=== PATIENT | male | born 1995 | race Caucasian/White ===

== ENCOUNTER 2023-11-23 02:45 | Inpatient (IN) | payer MEDICAID ==
[~2023-11-23] VITALS: Ht 185.4 cm; Wt 108.4 kg
[2023-11-23 05:00] VITALS: BP 122/71; TEMP 97.7; O2SAT 100
[2023-11-23] MEDS ORDERED: Z GUARD REMEDY 4 OZ OINT TP PRN (06:30)
[2023-11-23] MEDS ORDERED: ONDANSETRON HCL/PF 4 MG/2 ML VIAL IVP PRN (06:30)
[2023-11-23] MEDS ORDERED: MAG HYDROX/AL HYDROX/SIMETH 30 ML UDC PO PRN (06:30)
[2023-11-23] MEDS ORDERED: ZOLPIDEM TARTRATE 5 MG TABLET PO PRN (06:30)
[2023-11-23] MEDS ORDERED: MAGNESIUM HYDROXIDE 30 ML UDC PO PRN (06:30)
[2023-11-23] MEDS: IV D5/0.45 NACL 1,000 ML IV PRN (07:17)
[2023-11-23] MEDS ORDERED: CEPH500C2 PO (07:21)
[2023-11-23] MEDS ORDERED: METH750T3 PO (07:21)
[2023-11-23] MEDS ORDERED: IBUP-1955 PO (07:21)
[2023-11-23] MEDS ORDERED: ONDA4TAB11 SL (07:21)
[2023-11-23] MEDS ORDERED: PREG200C PO (07:21)
[2023-11-23 07:22] LABS: BASOPHILS % (AUTO) 0.6 % (0.0-2.0); EOSINOPHILS # (AUTO) 0.2 K/uL (0.0-0.7); EOSINOPHILS % (AUTO) 6.5 % (0.0-6.0); HEMATOCRIT 40 % (39-51); HEMOGLOBIN 13.5 g/dL (13.5-17.5); LYMPHOCYTES # (AUTO) 0.7 K/uL (0.8-4.8); LYMPHOCYTES % (AUTO) 19.9 % (20.0-44.0); MEAN CORPUSCULAR HEMOGLOBIN 28 PG (26.0-33.0); MEAN CORPUSCULAR HGB CONC 33 g/dl (31.0-36.0); MEAN CORPUSCULAR VOLUME 84 fL (80-96); MONOCYTES # (AUTO) 0.3 K/uL (0.1-1.30); MONOCYTES % (AUTO) 10.3 % (2.0-12.0); NEUTROPHILS # (AUTO) 2.1 K/uL (1.8-8.9); NEUTROPHILS % (AUTO) 62.7 % (43.0-81.0); PLATELET COUNT (AUTO) 135 K/uL (150-450); RED BLOOD CELL COUNT(AUTO) 4.78 MIL/uL (4.5-6.0); WHITE BLOOD COUNT (AUTO) 3.3 K/uL (4.3-11.0)
[2023-11-23] MEDS ORDERED: OXYC30TA2 PO (07:44)
[2023-11-23 07:50] LABS: ALBUMIN 2.7 g/dL (3.4-5.0); BILIRUBIN,TOTAL 0.2 mg/dL (0.2-1.0); CALCIUM, SERUM 8.6 mg/dL (8.5-10.1); CREATININE 0.8 mg/dL (0.6-1.3); POTASSIUM 3.9 mmol/L (3.5-5.1); TOTAL PROTEIN, SERUM 6.2 g/dL (6.4-8.2)
[2023-11-23] MEDS: CEFTRIAXONE 1 G in IV D5W 50 ML IV SCH (08:30)
[2023-11-23] MEDS: PANTOPRAZOLE 40 MG VIAL IV SCH (08:43)
[2023-11-23] MEDS: HYDROMORPHONE 1 MG/1 ML DISP.SYRIN IV PRN (08:44)
[2023-11-23] MEDS ORDERED: IBUPROFEN 600 MG TABLET PO PRN (12:30)
[2023-11-23] MEDS ORDERED: METHOCARBAMOL (750MG) 750 MG TABLET PO PRN (12:30)
[2023-11-23] MEDS ORDERED: ONDANSETRON 4 MG TAB.RAPDIS SL PRN (12:30)
[2023-11-23] MEDS: METHOCARBAMOL (500MG) 500 MG TABLET PO PRN (12:38)
[2023-11-23] MEDS: oxyCODONE IR immediate release 5 MG PO SCH (12:47)
[2023-11-23] MEDS: PREGABALIN 100 MG CAPSULE PO SCH (12:47)
[2023-11-23 20:00] VITALS: BP 118/70; TEMP 100.4; O2SAT 100
[2023-11-23] MEDS: ACETAMINOPHEN 325 MG TABLET PO PRN (20:24)
[2023-11-24] VITALS: BP 113/67; TEMP 98.8; O2SAT 99
[2023-11-24] MEDS: diphenhydrAMINE HCL 25 MG CAPSULE PO PRN (01:05)
[2023-11-24] MEDS: HYDROCODONE/APAP 5/325MG TABLET PO PRN (01:22)
[2023-11-24] MEDS: LORAZEPAM INJ 2 MG/ML VIAL IV ONE (02:12)
[2023-11-24 04:00] VITALS: BP 117/72; TEMP 97.7; O2SAT 99
[2023-11-24 06:40] LABS: BASOPHILS % (AUTO) 0.5 % (0.0-2.0); EOSINOPHILS # (AUTO) 0.2 K/uL (0.0-0.7); EOSINOPHILS % (AUTO) 5.8 % (0.0-6.0); HEMATOCRIT 39 % (39-51); HEMOGLOBIN 13.2 g/dL (13.5-17.5); LYMPHOCYTES # (AUTO) 1.1 K/uL (0.8-4.8); LYMPHOCYTES % (AUTO) 35.1 % (20.0-44.0); MEAN CORPUSCULAR HEMOGLOBIN 29 PG (26.0-33.0); MEAN CORPUSCULAR HGB CONC 34 g/dl (31.0-36.0); MEAN CORPUSCULAR VOLUME 84 fL (80-96); MONOCYTES # (AUTO) 0.6 K/uL (0.1-1.30); MONOCYTES % (AUTO) 19.6 % (2.0-12.0); NEUTROPHILS # (AUTO) 1.2 K/uL (1.8-8.9); PLATELET COUNT (AUTO) 143 K/uL (150-450); RED BLOOD CELL COUNT(AUTO) 4.61 MIL/uL (4.5-6.0); RED CELL DISTRIBUTION WIDTH 13.9 % (11.5-15.0); WHITE BLOOD COUNT (AUTO) 3.2 K/uL (4.3-11.0)
[2023-11-24 06:54] LABS: CALCIUM, SERUM 8.4 mg/dL (8.5-10.1); CREATININE 0.8 mg/dL (0.6-1.3); MAGNESIUM 2.1 mg/dL (1.8-2.4); POTASSIUM 3.7 mmol/L (3.5-5.1)
[2023-11-24 07:55] LABS: PHOSPHORUS 4.6 mg/dL (2.5-4.9)
[2023-11-24 08:00] VITALS: BP 120/66; TEMP 97.9; O2SAT 99
[2023-11-24 08:17] LABS: BAND % (MANUAL) 8 % (0.0-5.0); EOSINOPHILS % (MANUAL) 5 % (0-4); LYMPHOCYTES % (MANUAL) 35 % (16-48); MONOCYTES % (MANUAL) 16 % (0-11.0); NEUTROPHILS % (MANUAL) 36 (42-76)
[2023-11-24 08:18] LABS: PLATELET ESTIMATE SLIGHTLY DECREASED
[2023-11-24 08:19] LABS: HYPOCHROMASIA FEW
[2023-11-24] MEDS: HYDROMORPHONE 1 MG/1 ML DISP.SYRIN IV PRN (11:32)
[2023-11-24 12:00] VITALS: BP 117/80; TEMP 97.9; O2SAT 98
[2023-11-24 16:00] VITALS: BP 99/61; TEMP 99.1; O2SAT 97
[2023-11-24 20:00] VITALS: BP 105/63; TEMP 100.2; O2SAT 98
[2023-11-25] VITALS: BP 118/72; TEMP 99; O2SAT 96
[2023-11-25 04:00] VITALS: BP 113/63; TEMP 98.1; O2SAT 97
[2023-11-25 06:51] LABS: BASOPHILS % (AUTO) 0.1 % (0.0-2.0); EOSINOPHILS # (AUTO) 0.1 K/uL (0.0-0.7); EOSINOPHILS % (AUTO) 1.1 % (0.0-6.0); HEMATOCRIT 39 % (39-51); HEMOGLOBIN 13.2 g/dL (13.5-17.5); LYMPHOCYTES # (AUTO) 1.5 K/uL (0.8-4.8); LYMPHOCYTES % (AUTO) 28.9 % (20.0-44.0); MEAN CORPUSCULAR HEMOGLOBIN 28 PG (26.0-33.0); MEAN CORPUSCULAR HGB CONC 34 g/dl (31.0-36.0); MEAN CORPUSCULAR VOLUME 83 fL (80-96); MONOCYTES # (AUTO) 0.5 K/uL (0.1-1.30); MONOCYTES % (AUTO) 10.5 % (2.0-12.0); NEUTROPHILS % (AUTO) 59.4 % (43.0-81.0); PLATELET COUNT (AUTO) 168 K/uL (150-450); RED CELL DISTRIBUTION WIDTH 13.6 % (11.5-15.0)
[2023-11-25 06:55] LABS: CALCIUM, SERUM 8.5 mg/dL (8.5-10.1); CREATININE 0.9 mg/dL (0.6-1.3); POTASSIUM 4.1 mmol/L (3.5-5.1)
[2023-11-25 08:00] VITALS: BP 115/70; TEMP 99.5; O2SAT 98
[2023-11-25] MEDS: PANTOPRAZOLE 40 MG TABLET.DR PO SCH (08:08)
[2023-11-25 12:00] VITALS: BP 117/71; TEMP 99.1; O2SAT 94
[2023-11-25 16:00] VITALS: BP 120/77; TEMP 98.5; O2SAT 98
[2023-11-25] MEDS: ENSURE ENLIVE CHOC 237 ML CAN PO SCH (17:25)
[2023-11-25 20:00] VITALS: BP 126/72; TEMP 98.4; O2SAT 96
[2023-11-26] VITALS: BP 123/63; TEMP 99.3; O2SAT 96
[2023-11-26 04:00] VITALS: BP 123/63; TEMP 98.6; O2SAT 97
[2023-11-26 07:52] LABS: BASOPHILS % (AUTO) 0.1 % (0.0-2.0); EOSINOPHILS % (AUTO) 0.3 % (0.0-6.0); HEMATOCRIT 42 % (39-51); HEMOGLOBIN 14.1 g/dL (13.5-17.5); LYMPHOCYTES # (AUTO) 1.3 K/uL (0.8-4.8); LYMPHOCYTES % (AUTO) 13.9 % (20.0-44.0); MEAN CORPUSCULAR HEMOGLOBIN 29 PG (26.0-33.0); MEAN CORPUSCULAR HGB CONC 33 g/dl (31.0-36.0); MEAN CORPUSCULAR VOLUME 86 fL (80-96); MONOCYTES # (AUTO) 0.6 K/uL (0.1-1.30); MONOCYTES % (AUTO) 6.9 % (2.0-12.0); NEUTROPHILS # (AUTO) 7.3 K/uL (1.8-8.9); NEUTROPHILS % (AUTO) 78.8 % (43.0-81.0); PLATELET COUNT (AUTO) 198 K/uL (150-450); RED BLOOD CELL COUNT(AUTO) 4.95 MIL/uL (4.5-6.0); RED CELL DISTRIBUTION WIDTH 13.8 % (11.5-15.0); WHITE BLOOD COUNT (AUTO) 9.3 K/uL (4.3-11.0)
[2023-11-26 08:19] LABS: CALCIUM, SERUM 8.6 mg/dL (8.5-10.1)
== END 2023-11-26 13:16 | disposition home or self-care (01) | DRG 720 ==
LOC: TELE-TD 04:50 → TELE1 06:39
PROVIDERS: ADMIT Internal Medicine; ATTEND Internal Medicine
DX: A41.9 Sepsis, unspecified organism (principal); G82.20 Paraplegia, unspecified; B34.9 Viral infection, unspecified; D72.819 Decreased white blood cell count, unspecified; I10 Essential (primary) hypertension; S12.600S Unspecified displaced fracture of seventh cervical vertebra, sequela; N10 Acute pyelonephritis; N30.00 Acute cystitis without hematuria; B96.20 Unspecified Escherichia coli [E. coli] as the cause of diseases classified elsewhere; V89.2XXS Person injured in unspecified motor-vehicle accident, traffic, sequela; Z88.0 Allergy status to penicillin
CPT/HCPCS: 36415; 80048-TC; 80053-TC; 83690-TC; 83735-TC; 84100-TC; 85025-TC; A4223; C9113; G0378; J0696; J1170; J2060; J3490; J7060; Q0163

== ENCOUNTER 2024-06-03 20:35 | Inpatient (IN) | payer MEDICARE, OTHER ==
[~2024-06-03] VITALS: Ht 188 cm; Wt 102.1 kg
[~2024-06-03 20:35] MED LIST: CEPH500C2 PO; IBUP-1955 PO; METH750T3 PO; ONDA4TAB11 SL; OXYC30TA2 PO; PREG200C PO
[2024-06-03] MEDS ORDERED: CEFEPIME 1 GM VIAL ONE (21:00)
[2024-06-03] MEDS ORDERED: VANCOMYCIN 1 GM /D5W 250 ML PB IV ONE (21:00)
[2024-06-03] MEDS ORDERED: ACETAMINOPHEN 650 MG/SUPP.RECT RC ONE (21:01)
[2024-06-03 21:12] LABS: BASOPHILS % (AUTO) 0.3 % (0.0-2.0); EOSINOPHILS # (AUTO) 0.3 K/uL (0.0-0.7); EOSINOPHILS % (AUTO) 3.1 % (0.0-6.0); HEMATOCRIT 44 % (39-51); HEMOGLOBIN 14.3 g/dL (13.5-17.5); LYMPHOCYTES % (AUTO) 9.9 % (20.0-44.0); MEAN CORPUSCULAR HEMOGLOBIN 28 PG (26.0-33.0); MEAN CORPUSCULAR HGB CONC 33 g/dl (31.0-36.0); MEAN CORPUSCULAR VOLUME 85 fL (80-96); MONOCYTES # (AUTO) 1.2 K/uL (0.1-1.30); MONOCYTES % (AUTO) 12.1 % (2.0-12.0); NEUTROPHILS # (AUTO) 7.4 K/uL (1.8-8.9); NEUTROPHILS % (AUTO) 74.6 % (43.0-81.0); PLATELET COUNT (AUTO) 225 K/uL (150-450); RED BLOOD CELL COUNT(AUTO) 5.13 MIL/uL (4.5-6.0); WHITE BLOOD COUNT (AUTO) 9.9 K/uL (4.3-11.0)
[2024-06-03] MEDS: CEFEPIME 1 GM in IV D5W 50 ML IV ONE (21:14)
[2024-06-03] MEDS: VANCOMYCIN 1 GM in IV D5W 250 ML IV ONE (21:14)
[2024-06-03] MEDS: ACETAMINOPHEN 650 MG/SUPP.RECT RC ONE (21:17)
[2024-06-03 21:25] LABS: CARBON DIOXIDE 23 mmol/L (21-32); CHLORIDE 102 mmol/L (98-107); GLUCOSE 101 mg/dL (74-106); POTASSIUM 4.2 mmol/L (3.5-5.1); SODIUM SERUM 135 mmol/L (136-145); UREA NITROGEN, BLOOD 10 mg/dL (7-18)
[2024-06-03 21:26] LABS: APPEARANCE,URINE SLIGHTLY CLOUDY (CLEAR); BILIRUBIN,URINE NEGATIVE (NEGATIVE); BLOOD, URINE NEGATIVE Ery/uL (NEGATIVE); COLOR,URINE YELLOW (YELLOW); KETONES,URINE TRACE mg/dL (NEGATIVE); LEUKOCYTE ESTERASE ,URINE 2+ (NEGATIVE); NITRITE, URINE NEGATIVE (NEGATIVE); PH,URINE 6.5 (5.0-8.0); PROTEIN,URINE 1+ mg/dl (NEGATIVE); UGLUCOSE NEGATIVE (NEGATIVE); UROBILINOGEN,URINE 0.2 EU/dL (0.2)
[2024-06-03 21:27] LABS: INR 1.02 (0.91-1.10); PARTIAL THROMBOPLASTIN TIME 27.8 SEC (24.3-34.3); PROTHROMBIN TIME 10.8 SECS (9.2-11.1)
[2024-06-03 21:31] LABS: ALANINE AMINOTRANSFERASE 31 U/L (12-78); ALKALINE PHOSPHATASE 115 U/L (46-116); ASPARTATE AMINOTRANSFERASE 9 U/L (15-37); BILIRUBIN,DIRECT 0.1 mg/dL (0.0-0.2); BILIRUBIN,TOTAL 0.3 mg/dL (0.2-1.0); TOTAL PROTEIN, SERUM 6.9 g/dL (6.4-8.2)
[2024-06-03 21:33] LABS: LACTIC ACID 1.8 mmol/L (0.4-2.0)
[2024-06-03 21:39] LABS: ADD URINE CULTURE YES; BACTERIA,URINE 1+ /HPF (None Seen); MUCUS,URINE Few /LPF (None Seen); RBC,URINE 0-2 /HPF (0-2); WBC,URINE 21-50 /HPF (0-3)
[2024-06-03] MEDS ORDERED: HYDROMORPHONE 1 MG/1 ML DISP.SYRIN ONE (21:55)
[2024-06-03] MEDS: HYDROMORPHONE 1 MG/1 ML DISP.SYRIN IV STA (22:01)
[2024-06-03] MEDS ORDERED: ONDANSETRON HCL/PF 4 MG/2 ML VIAL IVP PRN (22:30)
[2024-06-03] MEDS ORDERED: MAGNESIUM HYDROXIDE 30 ML UDC PO PRN (22:30)
[2024-06-03] MEDS ORDERED: HYDROMORPHONE 1 MG/1 ML DISP.SYRIN IV PRN ×2 (22:30→23:00)
[2024-06-03] MEDS ORDERED: HYDROCODONE/APAP 5/325MG TABLET PO PRN (22:30)
[2024-06-03] MEDS ORDERED: IBUPROFEN 600 MG TABLET PO PRN (23:00)
[2024-06-03] MEDS ORDERED: METHOCARBAMOL (750MG) 750 MG TABLET PO PRN (23:00)
[2024-06-03 23:34] VITALS: BP 119/74; TEMP 98.2; O2SAT 98
[2024-06-03] MEDS: IV NS 0.9% 1,000 ML IV SCH (23:52)
[2024-06-03] MEDS: HYDROMORPHONE 1 MG/1 ML DISP.SYRIN IV ONE (23:53)
[2024-06-04] MEDS: HYDROMORPHONE 1 MG/1 ML DISP.SYRIN IV PRN (03:55)
[2024-06-04 04:00] VITALS: BP 123/80; TEMP 98.2; O2SAT 97
[2024-06-04] MEDS ORDERED: CEFEPIME 1 GM VIAL ONE (05:19)
[2024-06-04] MEDS: CEFEPIME 2 GM in IV D5W 100 ML IV SCH (05:28)
[2024-06-04] MEDS: VANCOMYCIN HCL 1.25 GM in IV D5W 250 ML IV SCH (06:42)
[2024-06-04 07:00] VITALS: BP 156/98; TEMP 98.3; O2SAT 99
[2024-06-04 07:17] LABS: BASOPHILS % (AUTO) 0.6 % (0.0-2.0); EOSINOPHILS # (AUTO) 0.2 K/uL (0.0-0.7); EOSINOPHILS % (AUTO) 3.8 % (0.0-6.0); HEMATOCRIT 41 % (39-51); HEMOGLOBIN 13.7 g/dL (13.5-17.5); LYMPHOCYTES % (AUTO) 19.1 % (20.0-44.0); MEAN CORPUSCULAR HEMOGLOBIN 28 PG (26.0-33.0); MEAN CORPUSCULAR HGB CONC 33 g/dl (31.0-36.0); MEAN CORPUSCULAR VOLUME 85 fL (80-96); MONOCYTES % (AUTO) 20.4 % (2.0-12.0); NEUTROPHILS # (AUTO) 2.9 K/uL (1.8-8.9); NEUTROPHILS % (AUTO) 56.1 % (43.0-81.0); PLATELET COUNT (AUTO) 195 K/uL (150-450); RED BLOOD CELL COUNT(AUTO) 4.87 MIL/uL (4.5-6.0); RED CELL DISTRIBUTION WIDTH 14.6 % (11.5-15.0); WHITE BLOOD COUNT (AUTO) 5.1 K/uL (4.3-11.0)
[2024-06-04 07:50] LABS: CALCIUM, SERUM 8.4 mg/dL (8.5-10.1); CREATININE 0.9 mg/dL (0.6-1.3); MAGNESIUM 2.2 mg/dL (1.8-2.4); PHOSPHORUS 3.7 mg/dL (2.5-4.9); POTASSIUM 3.9 mmol/L (3.5-5.1)
[2024-06-04] MEDS ORDERED: TIZA-180 PO (08:44)
[2024-06-04] MEDS ORDERED: BUPR1PAT3 TP (08:44)
[2024-06-04] MEDS ORDERED: oxyCODONE IR immediate release 5 MG TABLET PO SCH (09:00)
[2024-06-04] MEDS: PREGABALIN 100 MG CAPSULE PO SCH (09:11)
[2024-06-04] MEDS: oxyCODONE IR immediate release 5 MG TABLET PO SCH ×2 (09:12→21:21)
[2024-06-04] MEDS: PANTOPRAZOLE 40 MG VIAL IV SCH (09:13)
[2024-06-04 09:23] LABS: BASOPHILS % (MANUAL) 0 % (0.0-2.0); EOSINOPHILS % (MANUAL) 4 % (0-4); LYMPHOCYTES % (MANUAL) 17 % (16-48); MONOCYTES % (MANUAL) 16 % (0-11.0); NEUTROPHILS % (MANUAL) 63 (42-76); PLATELET ESTIMATE ADEQUATE
[2024-06-04] MEDS ORDERED: TIZANIDINE HCL 4 MG TABLET PO PRN ×2 (14:30)
[2024-06-04] MEDS ORDERED: BUPRENORPHINE TP PRN (15:30)
[2024-06-04] MEDS ORDERED: TIZANIDINE PO PRN (15:30)
[2024-06-04 16:00] VITALS: BP 133/84; TEMP 99; O2SAT 94
[2024-06-04] MEDS: TIZANIDINE 2 MG PO PRN (17:04)
[2024-06-04] MEDS: KETOROLAC TROMETHAMINE 15 MG/ML VIAL IV PRN (17:27)
[2024-06-04] MEDS: ACETAMINOPHEN 650 MG/SUPP.RECT RC PRN (17:35)
[2024-06-04 20:00] VITALS: BP 94/42; TEMP 99; O2SAT 98
[2024-06-04 20:15] VITALS: BP 94/42; TEMP 99; O2SAT 98
[2024-06-04] MEDS: FAMOTIDINE/PF INJ 20 MG/2 ML VIAL IV ONE (20:19)
[2024-06-04] MEDS: diphenhydrAMINE HCL 50 MG/ML VIAL IV ONE (20:19)
[2024-06-04] MEDS ORDERED: IBUPROFEN 600 MG TABLET PO PRN (21:00)
[2024-06-05] VITALS: BP 122/62; TEMP 99.3; O2SAT 93
[2024-06-05 00:10] VITALS: BP 122/62; TEMP 99.3; O2SAT 92
[2024-06-05] MEDS: VANCOMYCIN HCL 1.25 GM in IV D5W 250 ML IV SCH (01:29)
[2024-06-05] MEDS ORDERED: methylPREDNISolone SOD SUCC 125 MG/2ML VIAL IV ONE (04:00)
[2024-06-05 07:18] LABS: BASOPHILS % (AUTO) 0.3 % (0.0-2.0); EOSINOPHILS # (AUTO) 0.1 K/uL (0.0-0.7); EOSINOPHILS % (AUTO) 2.2 % (0.0-6.0); HEMATOCRIT 42 % (39-51); HEMOGLOBIN 13.8 g/dL (13.5-17.5); LYMPHOCYTES # (AUTO) 1.1 K/uL (0.8-4.8); LYMPHOCYTES % (AUTO) 23.5 % (20.0-44.0); MEAN CORPUSCULAR HEMOGLOBIN 28 PG (26.0-33.0); MEAN CORPUSCULAR HGB CONC 33 g/dl (31.0-36.0); MEAN CORPUSCULAR VOLUME 85 fL (80-96); MONOCYTES # (AUTO) 0.6 K/uL (0.1-1.30); PLATELET COUNT (AUTO) 192 K/uL (150-450); RED BLOOD CELL COUNT(AUTO) 4.88 MIL/uL (4.5-6.0); WHITE BLOOD COUNT (AUTO) 4.9 K/uL (4.3-11.0)
[2024-06-05 07:35] LABS: CALCIUM, SERUM 8.4 mg/dL (8.5-10.1); CREATININE 1.1 mg/dL (0.6-1.3); POTASSIUM 4.3 mmol/L (3.5-5.1)
[2024-06-05 08:00] VITALS: BP 119/59; TEMP 102.4; O2SAT 96
[2024-06-05 08:27] LABS: MAGNESIUM 1.9 mg/dL (1.8-2.4); PHOSPHORUS 4.6 mg/dL (2.5-4.9)
[2024-06-05] MEDS: TOLTERODINE 2 MG CAP.SR PO SCH (08:43)
[2024-06-05] MEDS: ACETAMINOPHEN 325 MG TABLET PO PRN (08:43)
[2024-06-05] MEDS: diphenhydrAMINE HCL ELIX 25 MG/10 ML UDC PO ONE (08:49)
[2024-06-05 12:00] VITALS: BP 124/75; TEMP 99.5; O2SAT 97
[2024-06-05] MEDS ORDERED: HYDROMORPHONE 1 MG/1 ML DISP.SYRIN IV PRN (12:30)
[2024-06-05] MEDS: HYDROMORPHONE 1 MG/1 ML DISP.SYRIN IV PRN (12:39)
[2024-06-05] MEDS ORDERED: REMDESIVIR (CHARGED) 200 MG, *LOADING DOSE 1 EA in IV NS 0.9% 210 ML IV ONE (13:00)
[2024-06-05] MEDS: SENNOSIDES/DOCUSATE SODIUM 1 TAB TABLET PO SCH (15:33)
[2024-06-05 15:59] LABS: BASOPHILS % (AUTO) 0.5 % (0.0-2.0); EOSINOPHILS # (AUTO) 0.1 K/uL (0.0-0.7); EOSINOPHILS % (AUTO) 2.1 % (0.0-6.0); HEMATOCRIT 41 % (39-51); HEMOGLOBIN 13.6 g/dL (13.5-17.5); LYMPHOCYTES # (AUTO) 1.5 K/uL (0.8-4.8); LYMPHOCYTES % (AUTO) 30.4 % (20.0-44.0); MEAN CORPUSCULAR HEMOGLOBIN 28 PG (26.0-33.0); MEAN CORPUSCULAR HGB CONC 33 g/dl (31.0-36.0); MEAN CORPUSCULAR VOLUME 85 fL (80-96); MONOCYTES # (AUTO) 0.6 K/uL (0.1-1.30); MONOCYTES % (AUTO) 12.6 % (2.0-12.0); NEUTROPHILS # (AUTO) 2.7 K/uL (1.8-8.9); NEUTROPHILS % (AUTO) 54.4 % (43.0-81.0); PLATELET COUNT (AUTO) 123 K/uL (150-450); RED BLOOD CELL COUNT(AUTO) 4.82 MIL/uL (4.5-6.0)
[2024-06-05 16:00] VITALS: BP_SYST 117; BP_SYST 124; BP_DIAS 62; BP_DIAS 75; TEMP 99.5; O2SAT 97; O2SAT 98
[2024-06-05 16:11] LABS: D-DIMER 1.13 mg/L(FEU (0.17-0.50); INR 0.98 (0.91-1.10); PARTIAL THROMBOPLASTIN TIME 30.1 SEC (24.3-34.3); PROTHROMBIN TIME 10.4 SECS (9.2-11.1)
[2024-06-05] MEDS: SENNA 8.6 MG PO ONE (16:11)
[2024-06-05 16:17] LABS: ALBUMIN 2.5 g/dL (3.4-5.0); BILIRUBIN,TOTAL 0.3 mg/dL (0.2-1.0); TOTAL PROTEIN, SERUM 6.3 g/dL (6.4-8.2)
[2024-06-05] MEDS: IV NS 0.9% 1,000 ML IV PRN (18:11)
[2024-06-05 20:00] VITALS: BP 120/55; TEMP 99.7; O2SAT 98
[2024-06-05] MEDS: PREGABALIN 100 MG CAPSULE PO SCH (20:10)
[2024-06-05] MEDS: SENNA 8.6 MG PO SCH (22:20)
[2024-06-06] VITALS: BP 112/62; TEMP 98.2; O2SAT 98
[2024-06-06] MEDS: MAG HYDROX/AL HYDROX/SIMETH 30 ML UDC PO PRN (00:20)
[2024-06-06 04:00] VITALS: BP 103/62; TEMP 98.2; O2SAT 96
[2024-06-06 07:36] LABS: BASOPHILS % (AUTO) 0.3 % (0.0-2.0); EOSINOPHILS # (AUTO) 0.1 K/uL (0.0-0.7); EOSINOPHILS % (AUTO) 2.5 % (0.0-6.0); HEMATOCRIT 38 % (39-51); HEMOGLOBIN 12.5 g/dL (13.5-17.5); LYMPHOCYTES # (AUTO) 1.4 K/uL (0.8-4.8); LYMPHOCYTES % (AUTO) 23.5 % (20.0-44.0); MEAN CORPUSCULAR HEMOGLOBIN 28 PG (26.0-33.0); MEAN CORPUSCULAR HGB CONC 33 g/dl (31.0-36.0); MEAN CORPUSCULAR VOLUME 86 fL (80-96); MONOCYTES # (AUTO) 0.7 K/uL (0.1-1.30); NEUTROPHILS # (AUTO) 3.8 K/uL (1.8-8.9); NEUTROPHILS % (AUTO) 62.7 % (43.0-81.0); PLATELET COUNT (AUTO) 161 K/uL (150-450); RED BLOOD CELL COUNT(AUTO) 4.42 MIL/uL (4.5-6.0); RED CELL DISTRIBUTION WIDTH 14.8 % (11.5-15.0); WHITE BLOOD COUNT (AUTO) 6.1 K/uL (4.3-11.0)
[2024-06-06 08:00] VITALS: BP 126/73; TEMP 97.9; O2SAT 97
[2024-06-06] MEDS: PANTOPRAZOLE 40 MG TABLET.DR PO SCH (08:32)
[2024-06-06 12:00] VITALS: BP 134/66; TEMP 98.6; O2SAT 97
[2024-06-06 12:56] LABS: CALCIUM, SERUM 8.5 mg/dL (8.5-10.1); CREATININE 0.7 mg/dL (0.6-1.3); POTASSIUM 4.6 mmol/L (3.5-5.1)
[2024-06-06] MEDS ORDERED: REMDESIVIR (CHARGED) 100 MG in IV NS 0.9% 100 ML IV SCH (13:00)
[2024-06-06 13:12] LABS: MAGNESIUM 1.9 mg/dL (1.8-2.4)
[2024-06-06 16:00] VITALS: BP 133/79; TEMP 97.8; O2SAT 96
[2024-06-06] MEDS: HYDROMORPHONE 1 MG/1 ML DISP.SYRIN IV ONE (16:10)
[2024-06-06 20:00] VITALS: BP 123/61; TEMP 98.1; O2SAT 97
[2024-06-06] MEDS: SENNA 8.6 MG PO SCH (20:26)
[2024-06-07 04:00] VITALS: BP 131/76; TEMP 97.5; O2SAT 97
[2024-06-07 08:50] VITALS: BP 120/74; TEMP 97.7; O2SAT 96
[2024-06-07] MEDS ORDERED: LEVO500T90 PO (10:31)
== END 2024-06-07 11:20 | disposition home or self-care (01) | DRG 871 ==
LOC: ER 20:43 → TELE 21:36 → TELE1 06-05 02:06 → MEDSG1 06-06 14:32
PROVIDERS: ATTEND Nurse Practitioner Acute Care
PROC: XW033E5 Introduction of Remdesivir Anti-infective into Peripheral Vein, Percutaneous Approach, New Technology Group 5 (ICD-10-PCS; principal; 2024-06-05)
DX: A41.89 Other specified sepsis (principal); E43 Unspecified severe protein-calorie malnutrition; U07.1 COVID-19; E87.1 Hypo-osmolality and hyponatremia; N12 Tubulo-interstitial nephritis, not specified as acute or chronic; G82.20 Paraplegia, unspecified; Z87.828 Personal history of other (healed) physical injury and trauma; G90.4 Autonomic dysreflexia; I10 Essential (primary) hypertension; Z88.0 Allergy status to penicillin; Z79.899 Other long term (current) drug therapy; N30.90 Cystitis, unspecified without hematuria; G89.4 Chronic pain syndrome; S14.106S Unspecified injury at C6 level of cervical spinal cord, sequela; V89.2XXS Person injured in unspecified motor-vehicle accident, traffic, sequela; E88.09 Other disorders of plasma-protein metabolism, not elsewhere classified; K59.09 Other constipation; G62.9 Polyneuropathy, unspecified
CPT/HCPCS: 36415; 71045-TC; 80048-TC; 80076-TC; 80202-TC; 81001; 82962-TC; 83605-TC; 83735-TC; 83880; 84100-TC; 84484-TC; 85025-TC; 85378-TC; 85610-TC; 85730-TC; 86140-TC; 87040-TC; 87086-TC; A4223; G0378; J0692; J1170; J1200; J1885; J2470; J3370; J3490; J7030; J7060; Q0163

== ENCOUNTER 2024-06-27 20:52 | Emergency (ER) | payer MEDICARE, OTHER ==
[~2024-06-27] VITALS: Ht 188 cm; Wt 102.1 kg
[~2024-06-27 20:52] MED LIST changes: +BUPR1PAT3 TP; -CEPH500C2 PO; +LEVO500T90 PO; -METH750T3 PO; -ONDA4TAB11 SL; +TIZA-180 PO
[2024-06-27 21:18] VITALS: TEMP 98.3
[2024-06-27] MEDS: IV NS 0.9% 1,000 ML BAG IV ONE (22:56)
[2024-06-27 23:49] LABS: BASOPHILS % (AUTO) 0.3 % (0.0-2.0); EOSINOPHILS # (AUTO) 0.3 K/uL (0.0-0.7); EOSINOPHILS % (AUTO) 3.7 % (0.0-6.0); HEMATOCRIT 47 % (39-51); HEMOGLOBIN 15.8 g/dL (13.5-17.5); LYMPHOCYTES # (AUTO) 2.1 K/uL (0.8-4.8); LYMPHOCYTES % (AUTO) 22.2 % (20.0-44.0); MEAN CORPUSCULAR HEMOGLOBIN 29 PG (26.0-33.0); MEAN CORPUSCULAR HGB CONC 34 g/dl (31.0-36.0); MEAN CORPUSCULAR VOLUME 85 fL (80-96); MONOCYTES # (AUTO) 0.9 K/uL (0.1-1.30); NEUTROPHILS % (AUTO) 63.8 % (43.0-81.0); PLATELET COUNT (AUTO) 206 K/uL (150-450); RED BLOOD CELL COUNT(AUTO) 5.52 MIL/uL (4.5-6.0); RED CELL DISTRIBUTION WIDTH 15.7 % (11.5-15.0); WHITE BLOOD COUNT (AUTO) 9.4 K/uL (4.3-11.0)
[2024-06-27 23:53] LABS: APPEARANCE,URINE CLEAR (CLEAR); BILIRUBIN,URINE NEGATIVE (NEGATIVE); BLOOD, URINE NEGATIVE Ery/uL (NEGATIVE); COLOR,URINE YELLOW (YELLOW); KETONES,URINE NEGATIVE (NEGATIVE); LEUKOCYTE ESTERASE ,URINE NEGATIVE (NEGATIVE); NITRITE, URINE NEGATIVE (NEGATIVE); PROTEIN,URINE NEGATIVE (NEGATIVE); UGLUCOSE NEGATIVE (NEGATIVE)
[2024-06-27 23:58] LABS: ADD URINE CULTURE NO; BACTERIA,URINE Rare /HPF (None Seen); RBC,URINE 0-2 /HPF (0-2); SQUAMOUS EPITHELIAL CELL,UR Few /HPF (None Seen); WBC,URINE 0-2 /HPF (0-3)
[2024-06-28] MEDS: PREGABALIN 100 MG CAPSULE PO ONE
[2024-06-28] MEDS: TIZANIDINE HCL 4 MG TABLET PO ONE
[2024-06-28 00:03] LABS: CALCIUM, SERUM 8.9 mg/dL (8.5-10.1); CREATININE 0.9 mg/dL (0.6-1.3); POTASSIUM 4.1 mmol/L (3.5-5.1)
[2024-06-28 00:14] LABS: ALBUMIN 3.6 g/dL (3.4-5.0); BILIRUBIN,DIRECT 0.1 mg/dL (0.0-0.2); BILIRUBIN,TOTAL 0.3 mg/dL (0.2-1.0); TOTAL PROTEIN, SERUM 7.3 g/dL (6.4-8.2)
[2024-06-28 00:22] VITALS: BP 124/77; O2SAT 96
[2024-06-28] MEDS ORDERED: PREGABALIN 25 MG CAPSULE ONE (00:57)
[2024-06-28] MEDS ORDERED: oxyCODONE IR immediate release 5 MG TABLET ONE (00:57)
[2024-06-28] MEDS: oxyCODONE IR immediate release 5 MG TABLET PO PRN (01:25)
== END 2024-06-28 01:29 | disposition home or self-care (01) ==
LOC: ER 21:03
DX: G89.29 Other chronic pain (principal); R32 Unspecified urinary incontinence; R00.0 Tachycardia, unspecified; G82.20 Paraplegia, unspecified; R53.1 Weakness; R50.9 Fever, unspecified; I10 Essential (primary) hypertension; Z86.79 Personal history of other diseases of the circulatory system; Z87.81 Personal history of (healed) traumatic fracture; Z88.8 Allergy status to other drugs, medicaments and biological substances
CPT/HCPCS: 99283; 96360; 85025; 80048; 87086; 83605; 83690; 80076; 81001; 36415; 93005; J7030